=== PATIENT | female | born 1960 | race Hispanic/Latino ===

== ENCOUNTER 2017-03-18 14:39 | Observation (INO) | payer MEDICAID ==
[2017-03-18 14:39] VITALS: BMI 28.7
[2017-03-18 14:45] VITALS: RESP 16; TEMP 99.2
[2017-03-18] MEDS ORDERED: Sodium Chloride 0.9% 1,000 ML IV STA (15:31)
--- NOTE | 2017-03-18 15:40 | ED PDOC ---
Syncope/Near Syncope/Dizziness Chief Complaint (Provider): 'i have vertigo' History Per: Patient History/Exam Limitations: other (appears intoxicated) Onset/Duration Of Symptoms: Sudden Onset Current Symptoms Are (Timing): Still Present Activity At Onset Of Symptoms: Walking Associated Symptoms Preceding Syncopal Episode: No Predromal Symptoms (Sudden Onset) Additional Complaint(s): 56 year old female presents with complaints of 'vertigo.'She was walking around [place] and felt dizzy, nearly fell. States she has vertigo, but not taking any medication. Denies LOC, head trauma, numbness/tingling in extremities, unsteady gait. She endorses she drinks alcohol, 1-2 drinks per day, did not give any more information on drinking. Hx of alcohol abuse as per chart. No chronic medical conditions. PMD: none <Prem Hernandez - Last Filed: 03/18/17 17:23> <Dominga Ramírez - Last Filed: 03/21/17 21:02> Time Seen by Provider: 03/18/17 15:12 Chief Complaint (Nursing): Dizziness/Lightheaded Supervising Attending Note - Supervising Attending Note The Documented history was done by the: Attending Physician The documented physical exam was done by the: Physician Service Aide, Attending Physician - Attestation: I have personally seen and examined this patient.: Yes I have fully participated in the care of the patient.: Yes I have reviewed all pertinent clinical information: Yes - Notes: Notes:: On reeval pt is alert and awake. Tolerated PO in ER and able to ambulate without difficulty. DW pt need to f/u neurology and PMD and suggested AA for assistance with alcohol abuse. <Dominga Ramírez - Last Filed: 03/21/17 21:02> Past Medical History Vital Signs: Last Vital Signs Temp 99.2 F 03/18/17 14:41 Pulse 111 H 03/18/17 14:41 Resp 16 03/18/17 14:41 BP 108/79 03/18/17 14:41 Pulse Ox 98 03/18/17 14:41 - Medical History PMH: No Chronic Diseases - Family History Family History: States: Unknown Family Hx <Prem Hernandez - Last Filed: 03/18/17 17:23> Vital Signs: Last Vital Signs Temp 99.2 F 03/18/17 14:41 Pulse 86 03/18/17 21:28 Resp 16 03/18/17 21:28 BP 135/80 03/18/17 21:28 Pulse Ox 97 03/18/17 21:28 <Dominga Ramírez - Last Filed: 03/21/17 21:02> - Home Medications Home Medications: Ambulatory Orders Medication Instructions Recorded No Known Home Med [No Known Home 01/17/15 Med] - Allergies Allergies/Adverse Reactions: Allergies Allergy/AdvReac Type Severity Reaction Status Date / Time No Known Allergies Allergy Verified 03/18/17 14:41 Review of Systems ROS Statement: Except As Marked, All Systems Reviewed And Found Negative <Prem Hernandez - Last Filed: 03/18/17 17:23> Physical Exam - Reviewed Vital Signs Reviewed: Yes (tachycardia) - Physical Exam Appears: Positive for: No Acute Distress (appears intoxicated, unable to respond appropriately to questions) Head Exam: Positive for: NORMAL INSPECTION Skin: Positive for: Warm, Dry. Negative for: Diaphoresis Eye Exam: Positive for: PERRL, Other (anisocoria) Neck: Positive for: Normal Cardiovascular/Chest: Positive for: Regular Rate, Rhythm, Murmur, Tachycardia Respiratory: Positive for: Normal Breath Sounds. Negative for: Accessory Muscle Use, Rhonchi, Wheezing, Respiratory Distress Gastrointestinal/Abdominal: Positive for: Normal Exam, Soft. Negative for: Tenderness, Distended, Guarding Extremity: Negative for: Tenderness, Pedal Edema Neurologic/Psych: Positive for: oracle technical developer II-XII, Oriented (oriented to person, month , year, not to place. knows who is president of [facility].). Negative for: Motor/ Sensory Deficits, Facial Droop <Prem Hernandez - Last Filed: 03/18/17 17:23> - Laboratory Results Result Diagrams: 03/18/17 16:04 03/18/17 15:39 - ECG ECG: Positive for: Viewed By Me ECG Rhythm: Positive for: Normal QRS, Sinus Rhythm O2 Sat by Pulse Oximetry: 98 - Progress ED Course And Treament: likely secondary to alcohol intoxication, rule out hypoglycemia, rule out arrythymia * CBC * CMP * MAG * PHOS * BAL * EKG * GLUCOSE CHECK * IVF REASSESS Case d/w Dr. Ramírez, who agrees with the assessment and plan delineated above. CBC: leukopenia, MCV 104 CMP: Elevated AST/ALT: 356/156 low mag, high phosphate BAL: 417. Patient sleeping. Dr. Ramírez is aware. <Prem Hernandez - Last Filed: 03/18/17 17:23> - Laboratory Results Result Diagrams: 03/18/17 16:04 03/18/17 15:39 <Dominga Ramírez - Last Filed: 03/21/17 21:02> Disposition - Patient ED Disposition Is Patient to be Admitted: Transfer of Care - Disposition Disposition Time: 17:21 Patient Signed Over To: Dominga Ramírez <Prem Hernandez - Last Filed: 03/18/17 17:23> <Dominga Ramírez - Last Filed: 03/21/17 21:02> - Clinical Impression Clinical Impression: Alcohol abuse, Hypomagnesemia, Dizziness - Disposition Condition: STABLE
[2017-03-18 16:22] LABS: BASO # 0.1 K/uL (0.0-0.2); BASO % 2.4 % (0.0-2.0); EOS # 0.1 K/uL (0.0-0.7); EOS % 1.1 % (0.0-4.0); HEMOGLOBIN 12.6 g/dL (12.0-16.0); LYMPH # 1.6 K/uL (1.0-4.3); LYMPH % 33.4 % (20.0-40.0); MEAN CORPUSCULAR HEMOGLOBIN 34.4 pg (27.0-31.0); MEAN CORPUSCULAR HGB CONC 33.1 g/dL (33.0-37.0); MEAN PLATELET VOLUME 6.1 fl (7.2-11.7); MONO # 0.3 K/uL (0.0-0.8); NEUT # 2.6 K/uL (1.8-7.0); NEUT % 56.1 % (50.0-75.0); NRBC % 0.1 % (0.0-0.0); RBC 3.67 Mil/uL (3.80-5.20); RED CELL DISTRIBUTION WIDTH 16.5 % (11.5-14.5); WHITE BLOOD COUNT 4.7 K/uL (4.8-10.8)
[2017-03-18 16:38] LABS: ALB/GLOB RATIO 1.4 (1.0-2.1); ALBUMIN 4.3 g/dL (3.5-5.0); ALT/SGPT 136 U/L (9-52); AST/SGOT 356 U/L (14-36); BLOOD UREA NITROGEN 6 mg/dl (7-17); CALCIUM 8.5 mg/dL (8.4-10.2); GFR AFRICAN-AMERICAN > 60; GFR NON-AFRICAN AMERICAN > 60
[2017-03-18 16:44] LABS: MAGNESIUM 0.7 MG/DL (1.6-2.3)
[2017-03-18] MEDS ORDERED: Magnesium Sulfate 2 gm/50 ml 2 GM/50 ML BAG IVPB ONE (16:48)
[2017-03-18] MEDS ORDERED: Magnesium Sulfate 2 gm/50 ml 2 GM/50 ML BAG ONE (17:19)
[2017-03-18 21:29] VITALS: BP 135/80; PULSE 86; O2SAT 97
--- NOTE | 2017-03-19 13:05 | CARD ---
APPROVED REPORT EKG Measurement Heart [id number] <Conclusion> Normal sinus rhythm Septal infarct, age undetermined Abnormal ECG
== END 2017-03-19 00:10 | disposition home or self-care (01) ==
LOC: H.ER 14:39 → H.EROBSV 15:15
PROVIDERS: ADMIT Emergency Medicine; ATTEND Emergency Medicine
DX: F10.129 Alcohol abuse with intoxication, unspecified (principal); Y90.8 Blood alcohol level of 240 mg/100 ml or more; E83.42 Hypomagnesemia

== ENCOUNTER 2017-07-17 14:06 | Emergency (ER) | payer MEDICAID ==
[2017-07-17 14:14] VITALS: O2SAT 98; BMI 21.2
--- NOTE | 2017-07-17 14:43 | ED PDOC ---
HPI: Psych/Substance Abuse Chief Complaint (Nursing): Alcohol Ingestion Chief Complaint (Provider): Alcohol ingestion History Per: Patient History/Exam Limitations: no limitations Onset/Duration Of Symptoms: Hrs (prior to arrival) Additional Complaint(s): Karoline Gallegos is a 56 year old female, with a past medical history of seizures , who was brought to the emergency department by EMS for alcohol ingestion onset prior to arrival. Per EMS, patient was found in the street drinking vodka. Patient denies any complaints. He denies any head injury and is requesting to leave. No further medical complaints. PMD: None provided. Past Medical History Reviewed: Historical Data, Nursing Documentation, Vital Signs Vital Signs: Last Vital Signs Temp 97.3 F L 07/17/17 14:13 Pulse 97 H 07/17/17 14:13 Resp 20 07/17/17 14:13 BP 133/90 07/17/17 14:13 Pulse Ox 98 07/17/17 14:13 - Medical History PMH: Anxiety, Depression, Seizures (Alcohol related) - Family History Family History: States: Unknown Family Hx - Social History Alcohol: > 2 Drinks/Day - Home Medications Home Medications: Ambulatory Orders Medication Instructions Recorded Escitalopram [Lexapro] 20 mg PO DAILY 06/09/17 Meclizine [Antivert] 12.5 mg PO BID PRN 06/09/17 Omeprazole 40 mg PO DAILY PRN 06/09/17 Ondansetron ODT [Zofran ODT] 4 mg PO Q8H PRN 06/09/17 diaZEpam [Valium] 5 mg PO Q8H PRN 06/09/17 Magnesium Oxide [Mgo] 400 mg PO BID #14 tablet 06/11/17 Meclizine [Antivert] 12.5 mg PO BID tab 06/11/17 Sulfamethoxazole/Trimethoprim 1 tab PO BID #14 tab 06/11/17 [Bactrim DS 800 mg-160 mg] Meclizine [Meclizine*] 25 mg PO Q8 #15 tab 07/05/17 Ondansetron [Zofran] 4 mg PO Q8H #10 tab 07/05/17 - Allergies Allergies/Adverse Reactions: Allergies Allergy/AdvReac Type Severity Reaction Status Date / Time No Known Allergies Allergy Verified 03/18/17 14:41 Review of Systems ROS Statement: Except As Marked, All Systems Reviewed And Found Negative Constitutional: Negative for: Other (head injury) Physical Exam - Reviewed Nursing Documentation Reviewed: Yes Vital Signs Reviewed: Yes - Physical Exam Appears: Positive for: Well, No Acute Distress Head Exam: Positive for: ATRAUMATIC, NORMAL INSPECTION, NORMOCEPHALIC Skin: Positive for: Normal Color, Warm, Dry Eye Exam: Positive for: EOMI, Normal appearance, PERRL Neck: Positive for: Normal, Painless ROM, Supple Cardiovascular/Chest: Positive for: Regular Rate, Rhythm. Negative for: Murmur Respiratory: Positive for: Normal Breath Sounds. Negative for: Respiratory Distress Gastrointestinal/Abdominal: Positive for: Normal Exam, Bowel Sounds, Soft. Negative for: Tenderness, Guarding, Rebound Back: Positive for: Normal Inspection. Negative for: L CVA Tenderness, R CVA Tenderness Extremity: Positive for: Normal ROM. Negative for: Deformity, Swelling Neurologic/Psych: Positive for: Alert, Oriented, Gait (noted), Other (clear speech) - ECG O2 Sat by Pulse Oximetry: 98 (RA) Pulse Ox Interpretation: Normal Medical Decision Making Medical Decision Making: Initial Impression: Alcohol abuse Initial Plan: -Accucheck Scribe Attestation: Documented by Brandon Dean, acting as a scribe for Bharat Kaiser PA-C Provider Scribe Attestation: All medical record entries made by the Scribe were at my direction and personally dictated by me. I have reviewed the chart and agree that the record accurately reflects my personal performance of the history, physical exam, medical decision making, and the department course for this patient. I have also personally directed, reviewed, and agree with the discharge instructions and disposition. Disposition - Clinical Impression Clinical Impression: Alcohol ingestion - Disposition Referrals: [facility] [Outside] Condition: STABLE Instructions: Alcohol Intoxication (DC) Forms: [employer] (Hungarian)
[2017-07-17 15:12] VITALS: BP 128/76; PULSE 78; RESP 18; TEMP 97.6
== END 2017-07-17 15:12 | disposition home or self-care (01) ==
LOC: H.ER 14:06
DX: F10.10 Alcohol abuse, uncomplicated (principal); F32.9 Major depressive disorder, single episode, unspecified; F41.9 Anxiety disorder, unspecified

== ENCOUNTER 2017-07-20 09:42 | Observation (INO) | payer MEDICAID ==
[2017-07-20 09:43] VITALS: BMI 21.2
[2017-07-20] MEDS ORDERED: Sodium Chloride 0.9% 500 ML IV ONE (10:34)
--- NOTE | 2017-07-20 10:37 | ED PDOC ---
Syncope/Near Syncope/Dizziness Time Seen by Provider: 07/20/17 09:56 Chief Complaint (Nursing): Dizziness/Lightheaded History Per: Patient History/Exam Limitations: no limitations Onset/Duration Of Symptoms: Days (1), Gradual Current Symptoms Are (Timing): Still Present Associated Symptoms Preceding Syncopal Episode: No Predromal Symptoms (Sudden Onset). denies: Lightheadedness, Worse With Standing, Vertigo, Vertigo Worse With Change In Head Position Seizure Or Post-ictal Symptoms: None Possible Causative Factor(s): Recent Alcohol Fall Associated With With Symptoms: Yes, Positive Injury Severity: Moderate Additional History Per: Patient Additional Complaint(s): c/o dizziness since last night, pt states she also fell last night and hit back of heaf, denies LOC. C/o pain back of head and slight nausea. no vomiting no n/t /we no neck pain. pt has a long h/o of stoh abuse. Past Medical History Reviewed: Historical Data, Nursing Documentation, Vital Signs Vital Signs: Last Vital Signs Temp 97.8 F 07/20/17 09:49 Pulse 100 H 07/20/17 09:49 Resp 18 07/20/17 09:49 BP 166/87 H 07/20/17 09:49 Pulse Ox 100 07/20/17 09:49 - Medical History PMH: Anxiety, Depression, Seizures (Alcohol related) - Family History Family History: States: Unknown Family Hx - Living Arrangements Living Arrangements: With Family - Social History Current smoker - smoking cessation education provided: No Alcohol: > 2 Drinks/Day Drugs: Denies - Home Medications Home Medications: Ambulatory Orders Medication Instructions Recorded Escitalopram [Lexapro] 20 mg PO DAILY 06/09/17 Meclizine [Antivert] 12.5 mg PO BID PRN 06/09/17 Omeprazole 40 mg PO DAILY PRN 06/09/17 Ondansetron ODT [Zofran ODT] 4 mg PO Q8H PRN 06/09/17 diaZEpam [Valium] 5 mg PO Q8H PRN 06/09/17 Magnesium Oxide [Mgo] 400 mg PO BID #14 tablet 06/11/17 Meclizine [Antivert] 12.5 mg PO BID tab 06/11/17 Sulfamethoxazole/Trimethoprim 1 tab PO BID #14 tab 06/11/17 [Bactrim DS 800 mg-160 mg] Meclizine [Meclizine*] 25 mg PO Q8 #15 tab 07/05/17 Ondansetron [Zofran] 4 mg PO Q8H #10 tab 07/05/17 - Allergies Allergies/Adverse Reactions: Allergies Allergy/AdvReac Type Severity Reaction Status Date / Time No Known Allergies Allergy Verified 07/20/17 09:48 Review of Systems ROS Statement: Except As Marked, All Systems Reviewed And Found Negative Constitutional: Negative for: Fever, Chills Cardiovascular: Negative for: Chest Pain, Palpitations Respiratory: Negative for: Cough, Shortness of Breath Gastrointestinal: Positive for: Nausea. Negative for: Vomiting, Abdominal Pain , Diarrhea Musculoskeletal: Negative for: Neck Pain, Shoulder Pain, Arm Pain Neurological: Positive for: Headache (occipital), Dizziness. Negative for: Weakness, Numbness, Incoordination, Change in Speech, Confusion, Seizures, Altered Mental Status Psych: Positive for: Anxiety. Negative for: Depression, Psychosis, Suicidal ideation, Withdrawal Physical Exam - Reviewed Nursing Documentation Reviewed: Yes Vital Signs Reviewed: Yes - Physical Exam Appears: Positive for: Uncomfortable (axious) Eye Exam: Positive for: Normal appearance, EOMI, PERRL. Negative for: Nystagmus , Periorbital swelling, Periorbital tenderness, Conjunctival injection, Scleral icterus Neck: Positive for: Normal, Painless ROM, Supple. Negative for: Decreased ROM, Limited ROM, Trachea Midline, Pain On Movement Of Neck Cardiovascular/Chest: Positive for: Regular Rate, Rhythm, Chest Non Tender. Negative for: Edema, Gallop, Murmur, Bradycardia, Tachycardia Respiratory: Positive for: Normal Breath Sounds. Negative for: Decreased Breath Sounds, Accessory Muscle Use, Crackles, Rales, Rhonchi, Stridor, Wheezing , Respiratory Distress Pulses-Radial (L): 2+ Pulses-Radial (R): 2+ Gastrointestinal/Abdominal: Positive for: Normal Exam, Bowel Sounds, Soft. Negative for: Tenderness Back: Positive for: Normal Inspection. Negative for: L CVA Tenderness, R CVA Tenderness, Vertebral Tenderness Extremity: Positive for: Normal ROM. Negative for: Tenderness, Pedal Edema, Calf Tenderness, Deformity, Swelling Neurologic/Psych: Positive for: Alert, certified professional ergonomist II-XII, Oriented, Mood/Affect ( anxious), Cerebellar Tests (ftn nml), Gait (steady). Negative for: Motor/ Sensory Deficits, Aphasia, Facial Droop - Laboratory Results Result Diagrams: 07/20/17 11:27 07/20/17 14:02 - ECG ECG: Positive for: Interpreted By Me ECG Rhythm: Positive for: Normal QRS, Normal ST Segment, Sinus Tachycardia (101) Interpretation Of Abn EKG: no evidnece of ischemia O2 Sat by Pulse Oximetry: 100 Pulse Ox Interpretation: Normal - Radiology X-Ray: Interpreted by Me X-Ray Interpretation: No Acute Disease - Progress ED Course And Treament: gave 2 g of mag will admit to tele obs Re-evaluation Time: 14:00 Condition: Unchanged Disposition - Clinical Impression Clinical Impression: Alcohol intoxication, Hypomagnesemia - Patient ED Disposition Is Patient to be Admitted: Yes Counseled Patient/Family Regarding: Studies Performed, Diagnosis, Need For Followup - Disposition Disposition Time: 14:00 Condition: STABLE Forms: [facility] (Arabic) - Pt Status Changed To: Hospital Disposition Of: Observation - POA Present On Arrival: None
--- NOTE | 2017-07-20 11:08 | RAD ---
HISTORY: dizzy COMPARISON: No prior. FINDINGS: LUNGS: Suspect mild left basilar atelectasis not and or scarring PLEURA: No significant pleural effusion identified, no pneumothorax apparent. Mild biapical pleural thickening. CARDIOVASCULAR: Normal. OSSEOUS STRUCTURES: Old healed left posterior 7th 8th and 9th rib fractures. Questionable old healed fracture deformity of the right posterolateral 5th rib. Mild multilevel degenerative spondylosis of the thoracic spine VISUALIZED UPPER ABDOMEN: Normal. OTHER FINDINGS: None. IMPRESSION: Suspect mild left basilar atelectasis and or scarring. Old bilateral healed fracture deformities as described.
--- NOTE | 2017-07-20 11:29 | CT ---
PROCEDURE: CT HEAD WITHOUT CONTRAST. HISTORY: head injury COMPARISON: Comparison made with prior CT scan of the brain 07/05/2017 TECHNIQUE: Axial computed tomography images were obtained through the head/brain without intravenous contrast. Radiation dose: Total exam DLP = 865.63 mGy-cm. This CT exam was performed using one or more of the following dose reduction techniques: Automated exposure control, adjustment of the mA and/or kV according to patient size, and/or use of iterative reconstruction technique. FINDINGS: HEMORRHAGE: No acute parenchymal, subarachnoid or extra-axial hemorrhage. BRAIN: Suspect minimal chronic periventricular white matter ischemic changes. . Probable dilated perivascular spaces both inferior basal nuclei. . Mild to moderate central volume loss unchanged from prior study. . VENTRICLES: No obstructive hydrocephalus. CALVARIUM: There are no acute calvarial fractures. Mild hyperostosis frontalis interna. PARANASAL SINUSES: Unremarkable as visualized. No significant inflammatory changes. MASTOID AIR CELLS: Unremarkable as visualized. No inflammatory changes. OTHER FINDINGS: The orbits and contents appear grossly unremarkable. IMPRESSION: No acute intracranial hemorrhage. . Suspect minimal chronic periventricular white matter ischemic changes. Mild to moderate central volume loss unchanged.
[2017-07-20 11:38] LABS: BASO # 0.1 K/uL (0.0-0.2); BASO % 2.6 % (0.0-2.0); EOS % 0.7 % (0.0-4.0); HEMATOCRIT 36.5 % (34.0-47.0); LYMPH # 1.2 K/uL (1.0-4.3); LYMPH % 31.7 % (20.0-40.0); MEAN CELL VOLUME 102.1 fl (81.0-99.0); MEAN CORPUSCULAR HEMOGLOBIN 34.8 pg (27.0-31.0); MEAN CORPUSCULAR HGB CONC 34.1 g/dL (33.0-37.0); MEAN PLATELET VOLUME 7.3 fl (7.2-11.7); MONO # 0.2 K/uL (0.0-0.8); MONO % 4.2 % (0.0-10.0); NEUT # 2.4 K/uL (1.8-7.0); NEUT % 60.8 % (50.0-75.0); NRBC % 0.3 % (0.0-0.0); RED CELL DISTRIBUTION WIDTH 15.4 % (11.5-14.5); WHITE BLOOD COUNT 3.9 K/uL (4.8-10.8)
[2017-07-20 12:10] LABS: ALB/GLOB RATIO 1.3 (1.0-2.1); ALCOHOL SERUM 186 mg/dl (0-10); ALKALINE PHOSPHATASE 69 U/L (38-126); ALT/SGPT 67 U/L (9-52); AST/SGOT 131 U/L (14-36); BILIRUBIN,TOTAL 0.6 mg/dl (0.2-1.3); BLOOD UREA NITROGEN 5 mg/dl (7-17); CALCIUM 9.2 mg/dL (8.4-10.2); CARBON DIOXIDE 19 mmol/L (22-30); CHLORIDE 103 mmol/L (98-107); GFR AFRICAN-AMERICAN > 60; GLUCOSE,RANDOM 82 mg/dL (65-105); PHOSPHOROUS 4.2 mg/dl (2.5-4.5); POTASSIUM 4.7 MMOL/L (3.6-5.0); SODIUM 141 mmol/l (132-148); TOTAL PROTEIN 7.7 G/DL (6.3-8.2)
[2017-07-20] MEDS ORDERED: Magnesium Sulfate 2 gm/50 ml 2 GM/50 ML BAG IVPB ONE ×2 (12:18→14:41)
[2017-07-20] MEDS ORDERED: Magnesium Sulfate 2 gm/50 ml 2 GM/50 ML BAG ONE ×2 (12:40→15:31)
[2017-07-20 14:18] LABS: RBC URINE < 1 /hpf (0-3); URINE BILIRUBIN NEGATIVE (NEGATIVE); URINE BLOOD NEGATIVE (NEGATIVE); URINE COLOR STRAW (YELLOW); URINE GLUCOSE (UA) NEG (Normal); URINE KETONE 20 mg/dL (NEGATIVE); URINE LEUKOCYTE ESTERASE NEG Leu/uL (Negative); URINE PROTEIN NEGATIVE (NEGATIVE); URINE UROBILINOGEN 0.2-1.0 mg/dL (0.2-1.0); WBC URINE 1 /hpf (0-5)
[2017-07-20 14:33] LABS: BLOOD UREA NITROGEN 4 mg/dl (7-17); CALCIUM 8.9 mg/dL (8.4-10.2); CARBON DIOXIDE 18 mmol/L (22-30); CHLORIDE 103 mmol/L (98-107); GFR AFRICAN-AMERICAN > 60; GLUCOSE,RANDOM 119 mg/dL (65-105); POTASSIUM 3.8 MMOL/L (3.6-5.0); SODIUM 139 mmol/l (132-148)
[2017-07-20] MEDS ORDERED: Magnesium Oxide 400 mg Tab UD PO SCH (17:00)
[2017-07-20] MEDS ORDERED: Apap-Butalbital-Caffeine 325-50-40mg Tab PO PRN (18:24)
[2017-07-20] MEDS ORDERED: Pantoprazole 40 mg EC Tab PO PRN (18:24)
[2017-07-20 21:28] VITALS: RESP 18
[2017-07-21 05:12] VITALS: O2SAT 96
[2017-07-21 06:36] LABS: BLOOD UREA NITROGEN 3 mg/dl (7-17); CALCIUM 9.4 mg/dL (8.4-10.2); CARBON DIOXIDE 25 mmol/L (22-30); CHLORIDE 101 mmol/L (98-107); GFR AFRICAN-AMERICAN > 60; GLUCOSE,RANDOM 128 mg/dL (65-105); POTASSIUM 3.5 MMOL/L (3.6-5.0); SODIUM 136 mmol/l (132-148)
[2017-07-21 08:25] VITALS: BP 137/83; PULSE 91; TEMP 97.7
--- NOTE | 2017-07-21 08:32 | CARD ---
APPROVED REPORT EKG Measurement Heart [id number] <Conclusion> Sinus tachycardia Septal infarct, age undetermined ST & T wave abnormality, consider lateral ischemia Abnormal ECG
[2017-07-21] MEDS ORDERED: Multivitamin With Minerals Tab PO SCH (09:00)
[2017-07-21] MEDS ORDERED: Naproxen 500 MG TAB PO SCH (09:00)
[2017-07-21] MEDS ORDERED: Magnesium Oxide 400 mg Tab UD PO SCH ×2 (09:00)
[2017-07-21] MEDS ORDERED: Potassium Chloride 20 mEq ER Tab PO SCH (09:00)
[2017-07-21] MEDS ORDERED: Influenza Vaccine 18yr & older 0.5 ML/45 MCG SYR IM ONE (09:00)
[2017-07-21] MEDS ORDERED: Enoxaparin 40 mg Syringe SC SCH (09:00)
--- NOTE | 2017-07-21 12:15 | CP.PCM.HP ---
History of Present Illness - History of Present Illness History of Present Illness: Patient seen and examined with Dr. Novoa. 56 year old female presented with complaints of dizziness and fall where she hit her head. Denies LOC, nausea, vomiting. She has history EtOH abuse and has been seen multiple times in ED for same. This morning she is feeling well, sitting upright in bed. Pleasant, calm and cooperative. Discussed with patient importance of abstaining from alcohol and its intermodal dispatcher effects. She has PMD in [place], was to see neurology outpatient, has not made appointment. States she was referred due to to her history of multiple falls. Patient requesting assistance at home. PMH : Hypomagnesemia, EtOH abuse, mulitple falls Medications: Reviewed Allergies: NKDA Social : Etoh abuse Present on Admission - Present on Admission Any Indicators Present on Admission: No Review of Systems - Constitutional Constitutional: absent: Anorexia, Daytime Sleepiness, Headache - EENT Eyes: absent: Blurred Vision Nose/Mouth/Throat: absent: Nasal Congestion, Dysphagia - Cardiovascular Cardiovascular: absent: Chest Pain, Lightheadedness, Palpitations - Respiratory Respiratory: absent: Cough, Dyspnea - Gastrointestinal Gastrointestinal: absent: Abdominal Pain, Diarrhea, Nausea, Vomiting - Genitourinary Genitourinary: absent: Difficulty Urinating, Urinary Incontinence - Musculoskeletal Musculoskeletal: absent: Back Pain, Muscle Weakness, Numbness, Tingling - Neurological Neurological: Dizziness, Frequent Falls, Tremor Past Patient History - Infectious Disease Hx of Infectious Diseases: None - Past Medical History & Family History Past Medical History?: Yes - Past Social History Smoking Status: Never Smoked - CARDIAC Hx Cardiac Disorders: No - PULMONARY Hx Respiratory Disorders: No - NEUROLOGICAL Hx Neurological Disorder: No Hx Seizures: Yes (secondary to alcohol abuse) Hx Vertigo: Yes - HEENT Hx HEENT Problems: No - RENAL Hx Chronic Kidney Disease: No - ENDOCRINE/METABOLIC Hx Endocrine Disorders: No - HEMATOLOGICAL/ONCOLOGICAL Hx Blood Disorders: No - INTEGUMENTARY Hx Dermatological Problems: No - MUSCULOSKELETAL/RHEUMATOLOGICAL Hx Falls: Yes - GASTROINTESTINAL Hx Nausea: Yes - GENITOURINARY/GYNECOLOGICAL Hx Genitourinary Disorders: No - PSYCHIATRIC Hx Substance Use: No - SURGICAL HISTORY Hx Orthopedic Surgery: Yes (rt knee sx) - ANESTHESIA Hx Anesthesia: Yes Hx Anesthesia Reactions: No Hx Malignant Hyperthermia: No Meds Home Medications: Home Medication List Medication Instructions Recorded Confirmed Type Magnesium Oxide [Mag-Ox] 400 mg PO BID #14 tab 07/21/17 Rx Mometasone Furoate [Nasonex] 17 gm NS TID #1 spray.pump 07/21/17 Rx Allergies/Adverse Reactions: Allergies Allergy/AdvReac Type Severity Reaction Status Date / Time No Known Allergies Allergy Verified 07/20/17 09:48 Physical Exam - Constitutional Appears: Well, Older Than Stated Age - Head Exam Head Exam: NORMAL INSPECTION - Eye Exam Eye Exam: EOMI, Normal appearance, PERRL - Respiratory Exam Respiratory Exam: Clear to Auscultation Bilateral, NORMAL BREATHING PATTERN - Cardiovascular Exam Cardiovascular Exam: REGULAR RHYTHM, +S1, +S2. absent: Diastolic murmur, Systolic Murmur - GI/Abdominal Exam GI & Abdominal Exam: Normal Bowel Sounds, Soft. absent: Tenderness - Extremities Exam Extremities exam: Positive for: normal inspection. Negative for: pedal edema - Neurological Exam Neurological exam: Alert, CN II-XII Intact, Oriented x3 - Psychiatric Exam Psychiatric exam: Normal Affect, Normal Mood - Skin Skin Exam: Dry, Intact, Normal Color, Warm Results - Vital Signs Recent Vital Signs: Last Vital Signs Temp 97.7 F 07/21/17 08:25 Pulse 91 H 07/21/17 09:00 Resp 18 07/21/17 08:25 BP 137/83 07/21/17 08:57 Pulse Ox 96 07/21/17 08:25 - Labs Result Diagrams: 07/20/17 11:27 07/21/17 05:30 Labs: Laboratory Results - last 24 hr 07/20/17 07/20/17 07/20/17 10:00 14:02 14:02 Sodium 139 Potassium 3.8 Chloride 103 Carbon Dioxide 18 L Anion Gap 22 H BUN 4 L Creatinine 0.6 L Est GFR ( Amer) > 60 Est GFR (Non-Af Amer) > 60 POC Glucose (mg/dL) 141 H Random Glucose 119 H Calcium 8.9 Magnesium 1.0 L* Urine Color Straw Urine Clarity Clear Urine pH 6.0 Ur Specific [place] 1.009 Urine Protein Negative Urine Glucose (UA) Neg Urine Ketones 20 Urine Blood Negative Urine Nitrate Negative Urine Bilirubin Negative Urine Urobilinogen 0.2-1.0 Ur Leukocyte Esterase Neg Urine RBC (Auto) < 1 Urine Microscopic WBC 1 Ur Squamous Epith Cells < 1 Urine Opiates Screen Urine Methadone Screen Ur Barbiturates Screen Ur Phencyclidine Scrn Ur Amphetamines Screen U Benzodiazepines Scrn U Oth Cocaine Metabols U Cannabinoids Screen 07/20/17 07/20/17 07/21/17 16:14 20:00 05:30 Sodium 136 Potassium 3.5 L Chloride 101 Carbon Dioxide 25 Anion Gap 14 BUN 3 L Creatinine 0.6 L Est GFR ( Amer) > 60 Est GFR (Non-Af Amer) > 60 POC Glucose (mg/dL) Random Glucose 128 H Calcium 9.4 Magnesium 2.0 Urine Color Urine Clarity Urine pH Ur Specific [place] Urine Protein Urine Glucose (UA) Urine Ketones Urine Blood Urine Nitrate Urine Bilirubin Urine Urobilinogen Ur Leukocyte Esterase Urine RBC (Auto) Urine Microscopic WBC Ur Squamous Epith Cells Urine Opiates Screen Negative Urine Methadone Screen Negative Ur Barbiturates Screen Negative Ur Phencyclidine Scrn Negative Ur Amphetamines Screen Negative U Benzodiazepines Scrn Negative U Oth Cocaine Metabols Negative U Cannabinoids Screen Negative Assessment & Plan - Assessment and Plan (Free Text) Assessment: 56 year old female with hx of etoh abuse and multiple falls admitted for dizziness and head trauma s/p fall, and hypomagnesemia. CT head was unremarkable. Transaminitis is likely 2' to etoh abuse. Leukopenia - etiology unclear. Magnesium level 2.0 #Dizziness-resolved #Hypomagnesemia #EtOH abuse #Leukopenia #Transaminitis Patient to follow up with neurology outpatient. She needs to abstain from EtOH. Would likely benefit from home health services. Magnesium level WNL now. meclizine for dizziness thiamine, folate due to alcohol abuse. Case d/w Dr. Novoa
== END 2017-07-21 14:18 | disposition home or self-care (01) ==
LOC: H.ER 09:42 → UNDOADMOB 14:37 → H.ERHOLD 14:37 → H.TEL 17:56
PROVIDERS: ADMIT Family Medicine; ATTEND Family Medicine
DX: E83.42 Hypomagnesemia (principal); R29.6 Repeated falls; F10.10 Alcohol abuse, uncomplicated; R42 Dizziness and giddiness; S09.90XA Unspecified injury of head, initial encounter; W19.XXXA Unspecified fall, initial encounter; Y93.9 Activity, unspecified; Y92.9 Unspecified place or not applicable
CPT/HCPCS: 36415; 70450; 71010; 80048; 80053; 80320; 80324; 80345; 80346; 80349; 80353; 80358; 80361; 81003; 82948; 83735; 83992; 84100; 84484; 85025; 93005; 96372; 96374; 96375; 96376; 99285; G0378; J1650; J2405; J7040

== ENCOUNTER 2017-09-16 11:26 | Inpatient (IN) | payer MEDICAID ==
[2017-09-16] MEDS ORDERED: Sodium Chloride 0.9% 1,000 ML IV STA ×2 (12:07→14:49)
[2017-09-16 13:05] LABS: BASO # 0.1 K/uL (0.0-0.2); BASO % 0.4 % (0.0-2.0); HEMOGLOBIN 11.5 g/dL (12.0-16.0); LYMPH # 0.6 K/uL (1.0-4.3); LYMPH % 3.6 % (20.0-40.0); MEAN CELL VOLUME 107.2 fl (81.0-99.0); MEAN CORPUSCULAR HEMOGLOBIN 34.5 pg (27.0-31.0); MEAN CORPUSCULAR HGB CONC 32.2 g/dL (33.0-37.0); MEAN PLATELET VOLUME 7.4 fl (7.2-11.7); MONO # 0.7 K/uL (0.0-0.8); MONO % 4.7 % (0.0-10.0); NEUT # 14.6 K/uL (1.8-7.0); NEUT % 91.3 % (50.0-75.0); PLATELET COUNT 389 K/uL (130-400); RBC 3.33 Mil/uL (3.80-5.20); RED CELL DISTRIBUTION WIDTH 14.8 % (11.5-14.5)
[2017-09-16 13:26] LABS: ALB/GLOB RATIO 1.4 (1.0-2.1); ALBUMIN 4.5 g/dL (3.5-5.0); ALT/SGPT 48 U/L (9-52); AST/SGOT 67 U/L (14-36); BLOOD UREA NITROGEN 16 mg/dl (7-17); CALCIUM 9.6 mg/dL (8.4-10.2); GFR AFRICAN-AMERICAN > 60; GFR NON-AFRICAN AMERICAN > 60; MAGNESIUM 1.3 MG/DL (1.6-2.3)
[2017-09-16 13:29] LABS: ANISOCYTOSIS SLIGHT; HYPOCHROMIC SLIGHT; LYMPHOCYTE 1 % (20-50); MONOCYTE 2 % (0-10); NEUTROPHIL 97 % (42-75); PLATELET ESTIMATE NORMAL (NORMAL); TOTAL CELLS COUNTED 100
[2017-09-16 15:17] LABS: ABG ALLEN TEST YES; ARTERIAL BLOOD GAS HCO3 12.7 mmol/L (21-28); ARTERIAL BLOOD GAS HEMOGLOBIN 10.2 g/dL (11.7-17.4); ARTERIAL BLOOD GAS O2 CAPACITY 13.8 mL/dL (16-24); ARTERIAL BLOOD GAS O2 CONTENT 13.9 ML/dL (15-23); ARTERIAL BLOOD GAS O2 SAT 100.8 % (95-98); ARTERIAL BLOOD GAS PCO2 17 mm/Hg (35-45); ARTERIAL BLOOD GAS PH 7.31 (7.35-7.45); ARTERIAL BLOOD GAS PO2 93 mm/Hg (80-100); ARTERIAL BLOOD GAS TCO2 9.1 mmol/L (22-28)
[2017-09-16] MEDS ORDERED: Magnesium Sulfate 2 gm/50 ml 2 GM/50 ML BAG IVPB ONE (17:11)
[2017-09-16] MEDS: Lactated Ringer's 1,000 ML IV SCH (17:40)
[2017-09-16] MEDS ORDERED: Magnesium Sulfate 2 gm/50 ml 2 GM/50 ML BAG ONE (18:20)
--- NOTE | 2017-09-16 18:37 | RAD ---
HISTORY: admission COMPARISON: 07/20/2017 FINDINGS: LUNGS: No active pulmonary disease. PLEURA: No significant pleural effusion identified, no pneumothorax apparent. CARDIOVASCULAR: Normal. OSSEOUS STRUCTURES: Old fractures of the left posterior 7th through 9th ribs. VISUALIZED UPPER ABDOMEN: Normal. OTHER FINDINGS: None. IMPRESSION: No acute infiltrate.
[2017-09-16 19:38] LABS: BLOOD UREA NITROGEN 13 mg/dl (7-17); CALCIUM 8.7 mg/dL (8.4-10.2); GFR AFRICAN-AMERICAN > 60; GFR NON-AFRICAN AMERICAN > 60
[2017-09-16 19:42] LABS: VENOUS BLOOD GAS BASE EXCESS -7.1 mmol/L (0.0-2.0); VENOUS BLOOD GAS PCO2 29 mmHg (40-60); VENOUS BLOOD GAS PO2 24 mm/Hg (30-55); VENOUS BLOOD PH 7.37 (7.32-7.43)
--- NOTE | 2017-09-16 19:43 | ED PDOC ---
HPI:Nausea, Vomiting, Diarrhea Chief Complaint (Provider): Epigastric abdominal pain, vomitnig History Per: Patient History/Exam Limitations: no limitations Onset/Duration Of Symptoms: Hrs Current Symptoms Are (Timing): Still Present Have you had recent travel within the past 21 days to any of the following countries: [place], [place], [place] or [place]?: No Severity: Moderate Quality Of Discomfort: Cramping, Burning Associated Symptoms: Nausea, Vomiting. denies: Fever, Chills, Diarrhea, Loss Of Appetite, Constipation Exacerbating Factors: Food Additional Complaint(s): Pt reports similar episodes in the past. Pt states he mcfarlane]d GI consult with endoscopy and colonoscopy within the last year. PT states she had only polyps in the colon. Pt states these episodes have been more and more frequent and thinks it is due to anxiety. <Yahaira Mishra - Last Filed: 09/16/17 19:55> <Dominga Ramírez - Last Filed: 09/17/17 16:32> Time Seen by Provider: 09/16/17 11:52 Chief Complaint (Nursing): GI Problem Supervising Attending Note - Supervising Attending Note The Documented history was done by the: [employer] Worker, Attending Physician The documented physical exam was done by the: [employer] Worker, Attending Physician - Attestation: I have personally seen and examined this patient.: Yes I have fully participated in the care of the patient.: Yes I have reviewed all pertinent clinical information, including history, physical exam and plan: Yes - Notes: Notes:: Vomiting, dehydration severe with acidosis. Mild improvement in ER but needs hospitalization for persistent symptoms and acidosis. DW pt findings and plan of care. <Dominga Ramírez - Last Filed: 09/17/17 16:32> Past Medical History Reviewed: Historical Data, Nursing Documentation, Vital Signs Vital Signs: Last Vital Signs Temp 98.9 F 09/16/17 17:42 Pulse 108 H 09/16/17 17:42 Resp 14 09/16/17 17:42 BP 135/63 09/16/17 17:42 Pulse Ox 100 09/16/17 17:42 - Medical History PMH: Anxiety, Depression, Seizures (secondary to alcohol abuse) Denies: Chronic Kidney Disease - Family History Family History: States: Unknown Family Hx <Yahaira Mishra - Last Filed: 09/16/17 19:55> Vital Signs: Last Vital Signs Temp 97.3 F L 09/17/17 12:00 Pulse 76 09/17/17 12:00 Resp 17 09/17/17 12:00 BP 150/80 09/17/17 12:00 Pulse Ox 98 09/17/17 12:00 <Dominga Ramírez J - Last Filed: 09/17/17 16:32> - Home Medications Home Medications: Ambulatory Orders Medication Instructions Recorded Escitalopram [Lexapro] 20 mg PO DAILY 06/09/17 Omeprazole 40 mg PO DAILY 06/09/17 Acetaminophen/Butalbital/Caf 1 tab PO Q8H PRN 07/20/17 [Fioricet] Folic Acid 1 mg PO DAILY 07/20/17 Meclizine [Meclizine*] 25 mg PO Q8 PRN 07/20/17 Meloxicam [Mobic] 15 mg PO DAILY PRN 07/20/17 Multivitamin [Multi-Vitamin Daily] 1 tab PO DAILY 07/20/17 Potassium Chloride [K-Dur 20 mEq 20 meq PO DAILY 07/20/17 ER Tab] Magnesium Oxide [Mag-Ox] 400 mg PO BID #14 tab 07/21/17 Gabapentin [Neurontin] 100 mg PO Q8H 09/16/17 Haloperidol [Haldol] 3 mg PO HS 09/16/17 Levocetirizine Dihydrochloride 5 mg PO DAILY 09/16/17 [Xyzal] Ondansetron [Zofran Tab] 8 mg PO DAILY PRN 09/16/17 clonazePAM [Klonopin] 0.5 mg PO DAILY PRN 09/16/17 traZODone [Desyrel] 50 mg PO HS 09/16/17 - Allergies Allergies/Adverse Reactions: Allergies Allergy/AdvReac Type Severity Reaction Status Date / Time No Known Allergies Allergy Verified 09/16/17 11:33 Physical Exam - Reviewed Nursing Documentation Reviewed: Yes Vital Signs Reviewed: Yes - Physical Exam Appears: Positive for: Well, Non-toxic, No Acute Distress Head Exam: Positive for: ATRAUMATIC, NORMAL INSPECTION, NORMOCEPHALIC Skin: Positive for: Normal Color, Warm, DRY Eye Exam: Positive for: Normal appearance ENT: Positive for: Normal ENT Inspection Neck: Positive for: Normal, Painless ROM Cardiovascular/Chest: Positive for: Regular Rate, Rhythm Respiratory: Positive for: Normal Breath Sounds. Negative for: Accessory Muscle Use, Respiratory Distress Gastrointestinal/Abdominal: Positive for: Bowel Sounds, Soft, Tenderness (Mild epigastric tenderness ). Negative for: Normal Exam Back: Positive for: Normal Inspection Extremity: Positive for: Normal ROM Neurologic/Psych: Positive for: Alert, Oriented <Yahaira Mishra - Last Filed: 09/16/17 19:55> - Laboratory Results Result Diagrams: 09/16/17 12:45 09/16/17 19:20 - ECG O2 Sat by Pulse Oximetry: 100 <Yahaira Mishra - Last Filed: 09/16/17 19:55> - Laboratory Results Result Diagrams: 09/16/17 12:45 09/17/17 05:06 <Dominga Ramírez - Last Filed: 09/17/17 16:32> Medical Decision Making Medical Decision Making: Labs reviewed with Dr. Armas. Instructed to order ABG. Dr. Armas reviewed ABG. Case discussed with Dr. Ramírez. Orders placed. Discussed with Dr. Novoa. Pt states she feels much better and asking about juice. <Yahaira Mishra - Last Filed: 09/16/17 19:55> Disposition - Patient ED Disposition Is Patient to be Admitted: Yes - Disposition Disposition Time: 19:53 - Pt Status Changed To: Hospital Disposition Of: Inpatient - Admit Certification Admit to Inpatient:: After my assessment, the patient will require hospitalization for at least two midnights. This is because of the severity of symptoms shown, intensity of services needed, and/or the medical risk in this patient being treated as an outpatient. - POA Present On Arrival: None <Yahaira Mishra - Last Filed: 09/16/17 19:55> <Dominga Ramírez - Last Filed: 09/17/17 16:32> - Clinical Impression Clinical Impression: Dehydration, Hypomagnesemia, Gastritis - Disposition Condition: STABLE
[2017-09-16 22:27] VITALS: BMI 22.6
[2017-09-17] MEDS: Dextrose 5%/Lactated Ringer's 1,000 ML IV SCH ×3 (03:13→21:34)
[2017-09-17 04:58] LABS: SQUAMOUS EPITHIAL 1 /hpf (0-5); URINE BACTERIA RARE (<OCC); URINE BILIRUBIN NEGATIVE (NEGATIVE); URINE BLOOD NEGATIVE (NEGATIVE); URINE CLARITY CLEAR (Clear); URINE COLOR YELLOW (YELLOW); URINE GLUCOSE (UA) NEG (Normal); URINE LEUKOCYTE ESTERASE NEG Leu/uL (Negative); URINE NITRATE NEGATIVE (NEGATIVE); URINE PROTEIN NEGATIVE (NEGATIVE); URINE UROBILINOGEN 0.2-1.0 mg/dL (0.2-1.0)
[2017-09-17 05:44] LABS: ALB/GLOB RATIO 1.1 (1.0-2.1); ALBUMIN 3.1 g/dL (3.5-5.0); ALT/SGPT 38 U/L (9-52); AST/SGOT 44 U/L (14-36); BLOOD UREA NITROGEN 11 mg/dl (7-17); CALCIUM 8.8 mg/dL (8.4-10.2); GFR AFRICAN-AMERICAN > 60; GFR NON-AFRICAN AMERICAN > 60
[2017-09-17] MEDS: Pantoprazole 40 mg EC Tab PO SCH (10:30)
--- NOTE | 2017-09-17 14:22 | CARD ---
APPROVED REPORT EKG Measurement Heart [id number] <Conclusion> Sinus tachycardia Otherwise normal ECG
--- NOTE | 2017-09-17 14:28 | CP.PCM.HP ---
History of Present Illness - History of Present Illness History of Present Illness: 56 yo female presents to ED with complaint of severe abdominal pain, nausea, non -bloody/non-bilious vomiting x 1 day. PMH includes anxiety, depression, vertigo , and alcohol induced seizure disorder. Patient denies fever, chills, diarrhea, or loss of appetite. Patient reports similar episode in the past with GI workup including upper endoscopy and colonoscopy within last year which showed polyps in the colon. Patient reports she feels her episodes maybe due to her anxiety. PMD: Dr. Paul Specialists: Dr. [place]-upper body orthopedist, Dr. Lentz- lower body orthopedist PMH: anxiety, depression, vertigo, and alcohol induced seizure disorder SurHx: right ACL repair, tonsillectomy FMHx: mother had right breast cancer at 59, of [place] at 87; father at 53 from [place] SocHx: denies smoking, reports social EToH with no more than 2 drinks occasionally, denies drugs Medications: see medication reconciliation Allergies: NKDA Present on Admission - Present on Admission Any Indicators Present on Admission: No History of DVT/PE: No History of Uncontrolled Diabetes: No Urinary Catheter: No Decubitus Ulcer Present: No History Surgical Site Infection Following: None Review of Systems - Review of Systems All systems: reviewed and no additional remarkable complaints except (for what is mentioned in the HPI) - Constitutional Constitutional: absent: Chills, Headache - EENT Eyes: absent: Change in Vision Ears: absent: Ear Pain Nose/Mouth/Throat: absent: Nasal Congestion, Nasal Discharge - Cardiovascular Cardiovascular: absent: Chest Pain, Dyspnea - Respiratory Respiratory: absent: Cough, Hemoptysis - Gastrointestinal Gastrointestinal: Abdominal Pain, Nausea, Vomiting. absent: Diarrhea - Genitourinary Genitourinary: absent: Difficulty Urinating, Dysuria - Musculoskeletal Musculoskeletal: Other (chronic left hip pain s/p fall last year-no history of fracture) - Neurological Neurological: Vertigo (chronic). absent: Dizziness, Weakness - Psychiatric Psychiatric: Anxiety. absent: Homicidal Ideation, Suicidal Ideation - Endocrine Endocrine: absent: Polyuria - Hematologic/Lymphatic Hematologic: absent: Easy Bleeding, Easy Bruising Past Patient History - Infectious Disease Hx of Infectious Diseases: None - Past Medical History & Family History Past Medical History?: Yes - Past Social History Smoking Status: Never Smoked - CARDIAC Hx Cardiac Disorders: No - PULMONARY Hx Respiratory Disorders: No - NEUROLOGICAL Hx Seizures: Yes (secondary to alcohol abuse) - HEENT Hx HEENT Problems: No - RENAL Hx Chronic Kidney Disease: No - ENDOCRINE/METABOLIC Hx Endocrine Disorders: No - HEMATOLOGICAL/ONCOLOGICAL Hx Blood Disorders: No Hx AIDS: No Hx Human Immunodeficiency Virus (HIV): No - INTEGUMENTARY Hx Dermatological Problems: No - MUSCULOSKELETAL/RHEUMATOLOGICAL Hx Musculoskeletal Disorders: Yes Hx Falls: Yes - GASTROINTESTINAL Hx Gastrointestinal Disorders: Yes Hx Nausea: Yes Hx Vomiting: Yes - GENITOURINARY/GYNECOLOGICAL Hx Genitourinary Disorders: No - PSYCHIATRIC Hx Anxiety: Yes Hx Depression: Yes Hx Substance Use: No - SURGICAL HISTORY Hx Surgeries: Yes Hx Orthopedic Surgery: Yes (rt knee sx) - ANESTHESIA Hx Anesthesia: Yes Hx Anesthesia Reactions: No Hx Malignant Hyperthermia: No Meds Allergies/Adverse Reactions: Allergies Allergy/AdvReac Type Severity Reaction Status Date / Time No Known Allergies Allergy Verified 09/16/17 11:33 Physical Exam - Constitutional Appears: No Acute Distress - Head Exam Head Exam: ATRAUMATIC, NORMOCEPHALIC - Eye Exam Eye Exam: EOMI - ENT Exam ENT Exam: Mucous Membranes Moist - Neck Exam Neck exam: Positive for: Full Rom - Respiratory Exam Respiratory Exam: NORMAL BREATHING PATTERN - Cardiovascular Exam Cardiovascular Exam: REGULAR RHYTHM, +S1, +S2 - GI/Abdominal Exam GI & Abdominal Exam: Normal Bowel Sounds, Soft. absent: Tenderness - Extremities Exam Extremities exam: Negative for: calf tenderness, pedal edema - Neurological Exam Neurological exam: Alert, CN II-XII Intact, Oriented x3 - Psychiatric Exam Psychiatric exam: Normal Affect, Normal Mood - Skin Skin Exam: Dry, Warm Results - Vital Signs Recent Vital Signs: Last Vital Signs Temp 97.3 F L 09/17/17 12:00 Pulse 76 09/17/17 12:00 Resp 17 09/17/17 12:00 BP 150/80 09/17/17 12:00 Pulse Ox 98 09/17/17 12:00 - Labs Result Diagrams: 09/16/17 12:45 09/17/17 05:06 Labs: Laboratory Results - last 24 hr 09/16/17 09/16/17 09/16/17 15:03 16:34 17:19 ESR pCO2 17 L* pO2 93 HCO3 12.7 L ABG pH 7.31 L ABG Total CO2 9.1 L ABG O2 Saturation 100.8 H ABG O2 Content 13.9 L ABG Base Excess -15.6 L ABG Hemoglobin 10.2 L ABG Carboxyhemoglobin 2.7 H POC ABG HHb (Measured) -0.8 L ABG Methemoglobin 2.3 ABG O2 Capacity 13.8 L Segun Test Yes VBG pH VBG pCO2 VBG HCO3 VBG Total CO2 VBG O2 Sat (Calc) VBG Base Excess VBG Potassium A-a O2 Difference 35.0 Hgb O2 Saturation 95.8 Glucose Lactate FiO2 21.0 Crit Value Called To Wisam arnold Crit Value Called By 23 Crit Value Read Back Y Blood Gas Notified Time 1514 Sodium Potassium Chloride Carbon Dioxide Anion Gap BUN Creatinine Est GFR ( Amer) Est GFR (Non-Af Amer) POC Glucose (mg/dL) 179 H Random Glucose Calcium Total Bilirubin AST ALT Alkaline Phosphatase Total Protein Albumin Globulin Albumin/Globulin Ratio Lipase 125 TSH 3rd Generation Venous Blood Potassium Urine Color Urine Clarity Urine pH Ur Specific [place] Urine Protein Urine Glucose (UA) Urine Ketones Urine Blood Urine Nitrate Urine Bilirubin Urine Urobilinogen Ur Leukocyte Esterase Urine RBC (Auto) Urine Microscopic WBC Ur Squamous Epith Cells Urine Bacteria 09/16/17 09/16/17 09/17/17 19:20 19:35 04:48 ESR pCO2 pO2 24 L HCO3 ABG pH ABG Total CO2 ABG O2 Saturation ABG O2 Content ABG Base Excess ABG Hemoglobin ABG Carboxyhemoglobin POC ABG HHb (Measured) ABG Methemoglobin ABG O2 Capacity Segun Test VBG pH 7.37 VBG pCO2 29 L VBG HCO3 17.8 VBG Total CO2 17.7 L VBG O2 Sat (Calc) 49.7 VBG Base Excess -7.1 L VBG Potassium 3.4 L A-a O2 Difference Hgb O2 Saturation Glucose 255 H Lactate 2.1 FiO2 21.0 Crit Value Called To Crit Value Called By Crit Value Read Back Blood Gas Notified Time Sodium 136 135.0 Potassium 3.6 Chloride 101 101.0 Carbon Dioxide 15 L Anion Gap 24 H BUN 13 Creatinine 0.8 Est GFR ( Amer) > 60 Est GFR (Non-Af Amer) > 60 POC Glucose (mg/dL) Random Glucose 251 H Calcium 8.7 Total Bilirubin AST ALT Alkaline Phosphatase Total Protein Albumin Globulin Albumin/Globulin Ratio Lipase TSH 3rd Generation Venous Blood Potassium 3.4 L Urine Color Yellow Urine Clarity Clear Urine pH 6.0 Ur Specific [place] 1.009 Urine Protein Negative Urine Glucose (UA) Neg Urine Ketones Trace Urine Blood Negative Urine Nitrate Negative Urine Bilirubin Negative Urine Urobilinogen 0.2-1.0 Ur Leukocyte Esterase Neg Urine RBC (Auto) 1 Urine Microscopic WBC 1 Ur Squamous Epith Cells 1 Urine Bacteria Rare 09/17/17 09/17/17 05:06 05:06 ESR 17 pCO2 pO2 HCO3 ABG pH ABG Total CO2 ABG O2 Saturation ABG O2 Content ABG Base Excess ABG Hemoglobin ABG Carboxyhemoglobin POC ABG HHb (Measured) ABG Methemoglobin ABG O2 Capacity Segun Test VBG pH VBG pCO2 VBG HCO3 VBG Total CO2 VBG O2 Sat (Calc) VBG Base Excess VBG Potassium A-a O2 Difference Hgb O2 Saturation Glucose Lactate FiO2 Crit Value Called To Crit Value Called By Crit Value Read Back Blood Gas Notified Time Sodium 141 Potassium 3.1 L Chloride 106 Carbon Dioxide 24 Anion Gap 14 BUN 11 Creatinine 0.7 Est GFR ( Amer) > 60 Est GFR (Non-Af Amer) > 60 POC Glucose (mg/dL) Random Glucose 141 H Calcium 8.8 Total Bilirubin 0.5 AST 44 H D ALT 38 Alkaline Phosphatase 55 Total Protein 6.1 L Albumin 3.1 L D Globulin 2.9 Albumin/Globulin Ratio 1.1 Lipase TSH 3rd Generation 1.72 Venous Blood Potassium Urine Color Urine Clarity Urine pH Ur Specific [place] Urine Protein Urine Glucose (UA) Urine Ketones Urine Blood Urine Nitrate Urine Bilirubin Urine Urobilinogen Ur Leukocyte Esterase Urine RBC (Auto) Urine Microscopic WBC Ur Squamous Epith Cells Urine Bacteria Assessment & Plan - Assessment and Plan (Free Text) Assessment: 56 yo female admitted for dehydration, hypomagnesemia, and gastritis. -admit to telemetry -NPO -Zofran IV PRN, IVF, PPI -will advance diet as tolerated -f/u CMP and CBC - Date & Time Date: 09/17/17 Time: 10:55
[2017-09-17] MEDS: Potassium Chloride 20 mEq ER Tab PO SCH (16:58)
[2017-09-18 07:40] LABS: HEMOGLOBIN 11.1 g/dL (12.0-16.0); MEAN CORPUSCULAR HEMOGLOBIN 34.4 pg (27.0-31.0); MEAN CORPUSCULAR HGB CONC 33.4 g/dL (33.0-37.0); RBC 3.23 Mil/uL (3.80-5.20); RED CELL DISTRIBUTION WIDTH 14.4 % (11.5-14.5); WHITE BLOOD COUNT 6.4 K/uL (4.8-10.8)
[2017-09-18 08:15] VITALS: RESP 18
[2017-09-18] MEDS: Pantoprazole 40 mg EC Tab PO SCH (09:37)
[2017-09-18] MEDS: Potassium Chloride 20 mEq ER Tab PO SCH (09:37)
--- NOTE | 2017-09-18 09:42 | CP.PCM.DIS ---
Provider - Provider Date of Admission: 09/16/17 17:35 Attending physician: Jose Novoa MD Time Spent in preparation of Discharge (in minutes): 30 Diagnosis - Discharge Diagnosis (1) Dehydration Status: Resolved Priority: Low (2) Gastritis Status: Chronic Priority: Low (3) Hypomagnesemia Status: Resolved Priority: Low Hospital Course - Lab Results Lab Results: Most Recent Lab Values WBC 6.4 K/uL (4.8-10.8) D 09/18/17 06:45 RBC 3.23 Mil/uL (3.80-5.20) L 09/18/17 06:45 Hgb 11.1 g/dL (12.0-16.0) L 09/18/17 06:45 Hct 33.3 % (34.0-47.0) L 09/18/17 06:45 MCV 103.0 fl (81.0-99.0) H D 09/18/17 06:45 MCH 34.4 pg (27.0-31.0) H 09/18/17 06:45 MCHC 33.4 g/dL (33.0-37.0) 09/18/17 06:45 RDW 14.4 % (11.5-14.5) 09/18/17 06:45 Plt Count 228 K/uL (130-400) D 09/18/17 06:45 MPV 7.4 fl (7.2-11.7) 09/16/17 12:45 Neut % (Auto) 91.3 % (50.0-75.0) H 09/16/17 12:45 Lymph % (Auto) 3.6 % (20.0-40.0) L 09/16/17 12:45 [place] % (Auto) 4.7 % (0.0-10.0) 09/16/17 12:45 Eos % (Auto) 0.0 % (0.0-4.0) 09/16/17 12:45 Baso % (Auto) 0.4 % (0.0-2.0) 09/16/17 12:45 Neut # 14.6 K/uL (1.8-7.0) H 09/16/17 12:45 Lymph # 0.6 K/uL (1.0-4.3) L 09/16/17 12:45 [place] # 0.7 K/uL (0.0-0.8) 09/16/17 12:45 Eos # 0.0 K/uL (0.0-0.7) 09/16/17 12:45 Baso # 0.1 K/uL (0.0-0.2) 09/16/17 12:45 Neutrophils % (Manual) 97 % (42-75) H 09/16/17 12:45 Lymphocytes % (Manual) 1 % (20-50) L 09/16/17 12:45 Monocytes % (Manual) 2 % (0-10) 09/16/17 12:45 Platelet Estimate Normal (NORMAL) 09/16/17 12:45 Hypochromasia (manual) Slight 09/16/17 12:45 Anisocytosis (manual) Slight 09/16/17 12:45 Macrocytosis (manual) Moderate 09/16/17 12:45 ESR 17 mm/hr (0-30) 09/17/17 05:06 pCO2 17 mm/Hg (35-45) L* 09/16/17 15:03 pO2 24 mm/Hg (30-55) L 09/16/17 19:35 HCO3 12.7 mmol/L (21-28) L 09/16/17 15:03 ABG pH 7.31 (7.35-7.45) L 09/16/17 15:03 ABG Total CO2 9.1 mmol/L (22-28) L 09/16/17 15:03 ABG O2 Saturation 100.8 % (95-98) H 09/16/17 15:03 ABG O2 Content 13.9 ML/dL (15-23) L 09/16/17 15:03 ABG Base Excess -15.6 mmol/L (-2.0-3.0) L 09/16/17 15:03 ABG Hemoglobin 10.2 g/dL (11.7-17.4) L 09/16/17 15:03 ABG Carboxyhemoglobin 2.7 % (0.5-1.5) H 09/16/17 15:03 POC ABG HHb (Measured) -0.8 % (0.0-5.0) L 09/16/17 15:03 ABG Methemoglobin 2.3 % (0.0-3.0) 09/16/17 15:03 ABG O2 Capacity 13.8 mL/dL (16-24) L 09/16/17 15:03 Segun Test Yes 09/16/17 15:03 VBG pH 7.37 (7.32-7.43) 09/16/17 19:35 VBG pCO2 29 mmHg (40-60) L 09/16/17 19:35 VBG HCO3 17.8 mmol/L 09/16/17 19:35 VBG Total CO2 17.7 mmol/L (22-28) L 09/16/17 19:35 VBG O2 Sat (Calc) 49.7 % (40-65) 09/16/17 19:35 VBG Base Excess -7.1 mmol/L (0.0-2.0) L 09/16/17 19:35 VBG Potassium 3.4 mmol/L (3.6-5.2) L 09/16/17 19:35 A-a O2 Difference 35.0 mm/Hg 09/16/17 15:03 Hgb O2 Saturation 95.8 % (95.0-98.0) 09/16/17 15:03 Sodium 135.0 mmol/L (132-148) 09/16/17 19:35 Chloride 101.0 mmol/L (98-107) 09/16/17 19:35 Glucose 255 mg/dL (65-105) H 09/16/17 19:35 Lactate 2.1 mmol/L (0.7-2.1) 09/16/17 19:35 FiO2 21.0 % 09/16/17 19:35 Crit Value Called To Wisam arnold 09/16/17 15:03 Crit Value Called By 23 09/16/17 15:03 Crit Value Read Back Y 09/16/17 15:03 Blood Gas Notified Time 1514 09/16/17 15:03 Sodium 141 mmol/l (132-148) 09/17/17 05:06 Potassium 3.1 MMOL/L (3.6-5.0) L 09/17/17 05:06 Chloride 106 mmol/L (98-107) 09/17/17 05:06 Carbon Dioxide 24 mmol/L (22-30) 09/17/17 05:06 Anion Gap 14 (10-20) 09/17/17 05:06 BUN 11 mg/dl (7-17) 09/17/17 05:06 Creatinine 0.7 mg/dl (0.7-1.2) 09/17/17 05:06 Est GFR ( Amer) > 60 09/17/17 05:06 Est GFR (Non-Af Amer) > 60 09/17/17 05:06 POC Glucose (mg/dL) 179 mg/dL (65-110) H 09/16/17 17:19 Random Glucose 141 mg/dL (65-105) H 09/17/17 05:06 Calcium 8.8 mg/dL (8.4-10.2) 09/17/17 05:06 Phosphorus 5.6 mg/dl (2.5-4.5) H 09/16/17 12:45 Magnesium 1.3 MG/DL (1.6-2.3) L 09/16/17 12:45 Total Bilirubin 0.5 mg/dl (0.2-1.3) 09/17/17 05:06 AST 44 U/L (14-36) H D 09/17/17 05:06 ALT 38 U/L (9-52) 09/17/17 05:06 Alkaline Phosphatase 55 U/L (38-126) 09/17/17 05:06 Total Protein 6.1 G/DL (6.3-8.2) L 09/17/17 05:06 Albumin 3.1 g/dL (3.5-5.0) L D 09/17/17 05:06 Globulin 2.9 gm/dL (2.2-3.9) 09/17/17 05:06 Albumin/Globulin Ratio 1.1 (1.0-2.1) 09/17/17 05:06 Lipase 125 U/L (23-300) 09/16/17 16:34 TSH 3rd Generation 1.72 mIU/ML (0.46-4.68) 09/17/17 05:06 Venous Blood Potassium 3.4 mmol/L (3.6-5.2) L 09/16/17 19:35 Urine Color Yellow (YELLOW) 09/17/17 04:48 Urine Clarity Clear (Clear) 09/17/17 04:48 Urine pH 6.0 (5.0-8.0) 09/17/17 04:48 Ur Specific [place] 1.009 (1.003-1.030) 09/17/17 04:48 Urine Protein Negative mg/dL (NEGATIVE) 09/17/17 04:48 Urine Glucose (UA) Neg mg/dL (Normal) 09/17/17 04:48 Urine Ketones Trace mg/dL (NEGATIVE) 09/17/17 04:48 Urine Blood Negative (NEGATIVE) 09/17/17 04:48 Urine Nitrate Negative (NEGATIVE) 09/17/17 04:48 Urine Bilirubin Negative (NEGATIVE) 09/17/17 04:48 Urine Urobilinogen 0.2-1.0 mg/dL (0.2-1.0) 09/17/17 04:48 Ur Leukocyte Esterase Neg Yevgeniy/uL (Negative) 09/17/17 04:48 Urine RBC (Auto) 1 /hpf (0-3) 09/17/17 04:48 Urine Microscopic WBC 1 /hpf (0-5) 09/17/17 04:48 Ur Squamous Epith Cells 1 /hpf (0-5) 09/17/17 04:48 Urine Bacteria Rare (<OCC) 09/17/17 04:48 - Hospital Course Hospital Course: 56 yo female admitted for dehydration, hypomagnesemia, and gastritis. Patient improved s/p NPO diet and IV fluids and medication. Today patient was able to tolerate PO diet, ambulate without difficulty. Patient is medically stable for discharge with instructions to follow up with PMD Dr. Paul within 1 week and resume home medications as prescribed. - Date & Time of H&P Date of H&P: 09/17/17 Time of H&P: 10:59 Discharge Exam - Head Exam Head Exam: ATRAUMATIC, NORMOCEPHALIC - Eye Exam Eye Exam: EOMI - ENT Exam ENT Exam: Mucous Membranes Moist - Neck Exam Neck exam: Full Rom - Respiratory Exam Respiratory Exam: Clear to PA & Lateral, NORMAL BREATHING PATTERN - Cardiovascular Exam Cardiovascular Exam: REGULAR RHYTHM, +S1, +S2 - GI/Abdominal Exam GI & Abdominal Exam: Normal Bowel Sounds, Soft. absent: Tenderness - Extremities Exam Extremities exam: full ROM - Neurological Exam Neurological exam: Alert, CN II-XII Intact, Normal Gait, Oriented x3 - Psychiatric Exam Psychiatric exam: Normal Affect, Normal Mood - Skin Skin Exam: Dry, Normal Color, Warm Discharge Plan - Follow Up Plan Condition: STABLE Disposition: HOME/ ROUTINE Patient education suggested?: Yes Instructions: Gastritis (DC), Dehydration (DC) Additional Instructions: Follow up with PMD Dr. Paul within 1 week and resume home medications as prescribed Clinical Quality Measures - Date & Time of Discharge Summary Date of Discharge Summary: 09/18/17 Time of Discharge Summary: 09:44
[2017-09-18] MEDS: Lactated Ringer's 1,000 ML IV SCH (09:59)
[2017-09-18 11:11] LABS: BLOOD UREA NITROGEN 3 mg/dl (7-17); CALCIUM 9.6 mg/dL (8.4-10.2); GFR AFRICAN-AMERICAN > 60; GFR NON-AFRICAN AMERICAN > 60
[2017-09-18] MEDS ORDERED: Ciprofloxacin 400mg/200ml D5W 400 MG/200 ML BAG IVPB ONE (13:21)
[2017-09-18] MEDS ORDERED: Potassium Chloride 20 mEq ER Tab PO ONE (13:30)
--- NOTE | 2017-09-18 14:09 | CP.PCM.PCO ---
Assessment/Plan - Assessment/Plan Assessment (Free Text): Pt stable, offers no complaints, seen and cleared for d/c home by Dr. Novoa. Urine cx indicates gram neg. rods > 100,000. Pt is asymptomatic. Discussed with Dr. Novoa, pt given a dose of cipro and to be dc'd on cipro x [address] Novoa will follow cultures and advise pt if warranted. Labs reviewed with Dr. Novoa, pt takes potassium at home. Rx for potassium 20meq x 5 days given. Pt to f/u with PMD, Dr. Paul on Thursday for repeat blood work and management.
[2017-09-18 15:05] VITALS: BP 146/81; PULSE 78; TEMP 98.1; O2SAT 100
== END 2017-09-18 16:30 | disposition home or self-care (01) | DRG 296 ==
LOC: H.ER 11:26 → H.ERHOLD 17:35 → H.ICU/CCU 22:17 → H.MEDSURG1 09-17 16:05
PROVIDERS: ADMIT Family Medicine; ATTEND Family Medicine
DX: E83.42 Hypomagnesemia (principal); E86.0 Dehydration; K29.70 Gastritis, unspecified, without bleeding; F41.9 Anxiety disorder, unspecified; F32.9 Major depressive disorder, single episode, unspecified

== ENCOUNTER 2017-12-31 11:53 | Emergency (ER) | payer MEDICAID ==
[2017-12-31 11:56] VITALS: BMI 22.4
[2017-12-31] MEDS ORDERED: Sodium Chloride 0.9% 1,000 ML IV STA ×2 (12:13→17:18)
[2017-12-31] MEDS ORDERED: Dextrose 50% SYRINGE Inj (50 ml) IVP ONE (12:17)
[2017-12-31] MEDS ORDERED: Dextrose 50% SYRINGE Inj (50 ml) ONE (12:20)
--- NOTE | 2017-12-31 12:22 | ED PDOC ---
HPI: Abdomen Time Seen by Provider: 12/31/17 12:07 Chief Complaint (Nursing): Dizziness/Lightheaded History Per: Patient, EMS History/Exam Limitations: no limitations Onset/Duration Of Symptoms: Days (x 2) Current Symptoms Are (Timing): Still Present Additional Complaint(s): 57-year-old female presents to ED via EMS with epigastric abdominal pain associated with nausea and vomiting x 2 days. Reports intermittent episodes of diarrhea with non-bloody bleeding. (+) weakness, (+) dizziness. PMD: Provider TBD Past Medical History Reviewed: Historical Data, Nursing Documentation, Vital Signs Vital Signs: Last Vital Signs Temp 97.9 F 12/31/17 11:56 Pulse 109 H 12/31/17 11:56 Resp 17 12/31/17 11:56 BP 125/72 12/31/17 11:56 Pulse Ox 95 12/31/17 14:47 - Medical History PMH: Anxiety, Depression, Gastritis, Seizures (secondary to alcohol abuse) Denies: HIV, Chronic Kidney Disease Other PMH: EtOH Consumption - Surgical History Surgical History: No Surg Hx - Family History Family History: States: Unknown Family Hx - Home Medications Home Medications: Ambulatory Orders Medication Instructions Recorded Omeprazole 40 mg PO DAILY 06/09/17 Acetaminophen/Butalbital/Caf 1 tab PO Q8H PRN 07/20/17 [Fioricet] Folic Acid 1 mg PO DAILY 07/20/17 Meclizine [Meclizine*] 25 mg PO Q8 PRN 07/20/17 Meloxicam [Mobic] 15 mg PO DAILY PRN 07/20/17 Multivitamin [Multi-Vitamin Daily] 1 tab PO DAILY 07/20/17 Magnesium Oxide [Mag-Ox] 400 mg PO BID #14 tab 07/21/17 Gabapentin [Neurontin] 100 mg PO Q8H 09/16/17 Haloperidol [Haldol] 3 mg PO HS 09/16/17 Levocetirizine Dihydrochloride 5 mg PO DAILY 09/16/17 [Xyzal] clonazePAM [Klonopin] 0.5 mg PO DAILY PRN 09/16/17 Ciprofloxacin 500 mg PO BID #[address] [facility]..rec 09/18/17 Ondansetron ODT [Zofran ODT] 4 mg PO Q6 #20 odt 09/18/17 Potassium Chloride [K-Dur 20 mEq 20 meq PO DAILY #5 tab 09/18/17 ER Tab] traZODone [Desyrel] 50 mg PO HS #14 tab 09/18/17 - Allergies Allergies/Adverse Reactions: Allergies Allergy/AdvReac Type Severity Reaction Status Date / Time No Known Allergies Allergy Verified 09/16/17 11:33 Review of Systems ROS Statement: Except As Marked, All Systems Reviewed And Found Negative Constitutional: Positive for: Weakness Gastrointestinal: Positive for: Nausea, Vomiting, Abdominal Pain (Epigastric), Diarrhea (Intermittent episodes) Neurological: Positive for: Dizziness Physical Exam - Reviewed Nursing Documentation Reviewed: Yes Vital Signs Reviewed: Yes - Physical Exam ENT: Positive for: Other (Dry Mucous membranes noted) Cardiovascular/Chest: Positive for: Tachycardia (Regular rhythm) Respiratory: Positive for: Normal Breath Sounds (Lungs clear). Negative for: Respiratory Distress Gastrointestinal/Abdominal: Positive for: Normal Exam, Bowel Sounds, Soft. Negative for: Tenderness Extremity: Negative for: Tenderness, Swelling Neurologic/Psych: Positive for: Alert, Oriented (x 3). Negative for: Motor/ Sensory Deficits - Laboratory Results Result Diagrams: 12/31/17 13:00 12/31/17 13:00 - ECG O2 Sat by Pulse Oximetry: 95 (RA) Medical Decision Making Medical Decision Making: Plan: - Alcohol Serum - CMP - Lipase - CBC - Sodium Chloride 0.9% 1,000 ml IV 100 mls/hr - Pepcid 20 mg IVP STAT - Zofran ODT 4 mg PO STAT - Glucose, POC Routine 12:12 POC glucose reveals 48 mg/DL [low] 13:05 POC glucose reveals 160 mg/DL [high] Alcohol, Quantitative reveals 337 mg/dl [high] Potassium Level reveals 2.8 MMOL/L [low] Time: 13:54 - K-Dur 20 mEq ER Tab Scribe Attestation: Documented by Chris Gross, acting as a scribe for Zack Singh MD Provider Scribe Attestation: All medical record entries made by the Scribe were at my direction and personally dictated by me. I have reviewed the chart and agree that the record accurately reflects my personal performance of the history, physical exam, medical decision making, and the department course for this patient. I have also personally directed, reviewed, and agree with the discharge instructions and disposition. Disposition - Clinical Impression Clinical Impression: Alcohol intoxication - Patient ED Disposition Is Patient to be Admitted: Transfer of Care - Disposition Disposition Time: 15:04 Condition: FAIR Forms: [employer] (Indonesian) Patient Signed Over To: Ranjit Vasques
[2017-12-31 13:09] LABS: BASO # 0.2 K/uL (0.0-0.2); BASO % 2.9 % (0.0-2.0); EOS % 0.8 % (0.0-4.0); LYMPH # 1.9 K/uL (1.0-4.3); LYMPH % 34.3 % (20.0-40.0); MEAN CELL VOLUME 99.2 fl (81.0-99.0); MEAN CORPUSCULAR HEMOGLOBIN 32.7 pg (27.0-31.0); MEAN PLATELET VOLUME 7.3 fl (7.2-11.7); MONO # 0.4 K/uL (0.0-0.8); MONO % 7.6 % (0.0-10.0); NEUT # 3.1 K/uL (1.8-7.0); NEUT % 54.4 % (50.0-75.0); NRBC % 0.1 % (0.0-0.0); RBC 3.99 Mil/uL (3.80-5.20); RED CELL DISTRIBUTION WIDTH 17.1 % (11.5-14.5); WHITE BLOOD COUNT 5.6 K/uL (4.8-10.8)
[2017-12-31 13:36] LABS: ALB/GLOB RATIO 1.2 (1.0-2.1); ALBUMIN 3.8 g/dL (3.5-5.0); ALT/SGPT 49 U/L (9-52); AST/SGOT 122 U/L (14-36); BLOOD UREA NITROGEN 11 mg/dl (7-17); CALCIUM 8.1 mg/dL (8.4-10.2); GFR AFRICAN-AMERICAN > 60; GFR NON-AFRICAN AMERICAN > 60; LIPASE 147 U/L (23-300)
[2017-12-31] MEDS ORDERED: Potassium Chloride 20 mEq ER Tab PO ONE ×2 (13:54→15:35)
--- NOTE | 2017-12-31 15:17 | ED PDOC ---
- Laboratory Results Result Diagrams: 12/31/17 13:00 12/31/17 13:00 - ECG O2 Sat by Pulse Oximetry: 95 (RA) Medical Decision Making Medical Decision Making: Patient signed out to me by Dr. Singh @ 15:00, pending re-evaluation. Pt. sober, awake and alert. stable gait. pt stable for dc. dx alcohol intoxication pt also noted to have UTI- sending pt on macrobid Scribe Attestation: Documented by Chris Gross, acting as a scribe for Ranjit Vasques MD. Provider Scribe Attestation: All medical record entries made by the Scribe were at my direction and personally dictated by me. I have reviewed the chart and agree that the record accurately reflects my personal performance of the history, physical exam, medical decision making, and the department course for this patient. I have also personally directed, reviewed, and agree with the discharge instructions and disposition. Disposition Counseled Patient/Family Regarding: Studies Performed, Diagnosis, Need For Followup - Clinical Impression Clinical Impression: Alcohol intoxication - POA Present On Arrival: None - Disposition Referrals: [facility] [Outside] [facility] [Outside] Disposition: Routine/Home Disposition Time: 20:30 Condition: IMPROVED Additional Instructions: follow up with your primary doctor in 1-2 days return to the ED with any worsening or concerning symptoms Prescriptions: Nitrofurantoin Macrocrystals [Macrobid] 100 mg PO BID #14 cap Instructions: Urinary Tract Infection, Adult (DC), Alcohol Abuse and Alcoholism (DC) Forms: [employer] (South African)
[2017-12-31 17:47] LABS: SQUAMOUS EPITHIAL 18 /hpf (0-5); URINE BACTERIA RARE (<OCC); URINE BILIRUBIN NEGATIVE (NEGATIVE); URINE BLOOD NEGATIVE (NEGATIVE); URINE CLARITY CLOUDY (Clear); URINE COLOR YELLOW (YELLOW); URINE GLUCOSE (UA) >=500 mg/dL (Normal); URINE LEUKOCYTE ESTERASE LARGE Leu/uL (Negative); URINE PROTEIN NEGATIVE (NEGATIVE); URINE UROBILINOGEN 0.2-1.0 mg/dL (0.2-1.0)
[2017-12-31 18:42] VITALS: BP 138/85; RESP 16; TEMP 98.8
[2017-12-31 18:57] VITALS: PULSE 107
[2017-12-31 22:30] VITALS: O2SAT 95
== END 2017-12-31 20:13 | disposition home or self-care (01) ==
LOC: H.ER 11:53
DX: F10.129 Alcohol abuse with intoxication, unspecified (principal); N39.0 Urinary tract infection, site not specified; F32.9 Major depressive disorder, single episode, unspecified; F41.9 Anxiety disorder, unspecified
CPT/HCPCS: 80053; 80320; 81003; 82948; 83690; 85025; 87086; 87181; 96361; 96374; 96375; 99285; J2405; J7040